=== PATIENT | female | born 1965 ===

== ENCOUNTER 2016-07-09 18:39 | Emergency (ER) | payer OTHER ==
[2016-07-09 18:51] VITALS: BP 134/79; PULSE 67; RESP 16; TEMP 98.9; O2SAT 100
--- NOTE | 2016-07-09 19:20 | ED PDOC ---
HPI: Eye Injury/Pain Time Seen by Provider: 07/09/16 18:56 Chief Complaint (Nursing): Eye Problem Chief Complaint (Provider): right eye pain History Per: Patient History/Exam Limitations: no limitations Onset/Duration Of Symptoms: Days (x 1) Current Symptoms Are (Timing): Still Present Injury To Eye?: No Additional Complaint(s): Lesvia Castaneda is a 51 year old female, with a previous medical history of hypothyroidism and diabetes, who presents to the ED with complaints of right eye pain secondary to having an ointment applied to the eye by her doll eye setter. Pt reports to having her cataracts removed yesterday in [facility]. Pt states to following up with an doll eye setter in [facility] who applied an ointment to the eye to help with the healing. Pt stated shortly after to experiencing eye pain and swelling. Pt states her doll eye setter rinsed her eye out and placed a lens in her eye which has also caused pain. suggested the patient be seen in the ED if pain persists. Pt is unsure of 's name. Pt states to experiencing no pain prior to ointment application. Pt denies any changes in vision. PMD: none provided Past Medical History Reviewed: Historical Data, Nursing Documentation, Vital Signs Vital Signs: Last Vital Signs Temp 98.9 F 07/09/16 18:48 Pulse 67 07/09/16 18:48 Resp 16 07/09/16 18:48 BP 134/79 07/09/16 18:48 Pulse Ox 100 07/09/16 18:48 - Medical History PMH: No Chronic Diseases, Diabetes, Hypothyroidism - Surgical History Surgical History: Appendectomy - Family History Family History: States: Diabetes - Home Medications Home Medications: Ambulatory Orders Medication Instructions Recorded MetFORMIN [glucoPHAGE] 1,000 mg PO QAM #14 tab 02/17/16 Ibuprofen [Motrin] 600 mg PO Q8 PRN #21 tab 07/09/16 oxyCODONE/Acetaminophen [Percocet 1 ea PO Q6 PRN #5 tab 07/09/16 5/325 mg Tab] - Allergies Allergies/Adverse Reactions: Allergies Allergy/AdvReac Type Severity Reaction Status Date / Time No Known Allergies Allergy Verified 07/09/16 18:48 Review of Systems ROS Statement: Except As Marked, All Systems Reviewed And Found Negative Eyes: Positive for: Pain (right eye ), Redness. Negative for: Vision Change Physical Exam - Reviewed Nursing Documentation Reviewed: Yes Vital Signs Reviewed: Yes - Physical Exam Appears: Positive for: Well, Non-toxic, In Acute Distress (moderate painful ) Head Exam: Positive for: ATRAUMATIC, NORMAL INSPECTION, NORMOCEPHALIC Skin: Positive for: Normal Color, Warm, Dry Eye Exam: Positive for: Conjunctival injection (minimal ), Other (lens noted in place. No localized area of fluorescein uptake. Right eye dilated but able to constrict. Pt reports to having an eye exam earlier today.). Negative for: Periorbital swelling, Periorbital tenderness, Scleral icterus Neurologic/Psych: Positive for: Alert, Oriented - ECG O2 Sat by Pulse Oximetry: 100 (RA) Pulse Ox Interpretation: Normal - Progress ED Course And Treament: Pt reports pain improved after the application of the tetracaine eye drops. Visual acuity cannot be assessed secondary to pt's blurry vision. d/w Dr. Grant Advises antibiotic ointment application to eye and patch. Patient and daughter do not want this treatment, stating symptoms were aggravated initially from this. Will f/u with eye md tomorrow. Medical Decision Making Medical Decision Making: Initial Impression: eye pain Initial Plan: * fluorescein eye stain * motrin * reevaluation Scribe Attestation: Documented by Veda Peralta, acting as a scribe for Virgilio Thomas PA-C. Provider Scribe Attestation: All medical record entries made by the Scribe were at my direction and personally dictated by me. I have reviewed the chart and agree that the record accurately reflects my personal performance of the history, physical exam, medical decision making, and the department course for this patient. I have also personally directed, reviewed, and agree with the discharge instructions and disposition. Disposition - Clinical Impression Clinical Impression: Corneal injury - Patient ED Disposition Is Patient to be Admitted: No - Disposition Disposition: Routine/Home Disposition Time: 20:29 Condition: FAIR Prescriptions: Ibuprofen [Motrin] 600 mg PO Q8 PRN #21 tab PRN Reason: Pain, Moderate (4-7) oxyCODONE/Acetaminophen [Percocet 5/325 mg Tab] 1 ea PO Q6 PRN #5 tab PRN Reason: Pain, Severe (8-10) Instructions: Corneal Abrasion (ED) Print Language: LUXEMBOURGER
[2016-07-09] MEDS ORDERED: Fluorescein 1 mg Ophthalmic Strip ONE ×2 (19:33→19:52)
== END 2016-07-09 20:42 | disposition home or self-care (01) ==
LOC: H.ER 18:39
DX: H57.11 Ocular pain, right eye (principal); E11.9 Type 2 diabetes mellitus without complications; E03.9 Hypothyroidism, unspecified; Z79.84 Long term (current) use of oral hypoglycemic drugs

== ENCOUNTER 2018-01-19 14:46 | Emergency (ER) | payer OTHER ==
[2018-01-19 15:19] VITALS: BP 131/80; PULSE 74; RESP 19; TEMP 98.7; O2SAT 99
[2018-01-19 15:20] VITALS: BMI 23.6
[2018-01-19] MEDS ORDERED: Tdap Vaccine 0.5 ml Vial (10-64 yrs) IM ONE ×2 (16:49→17:40)
[2018-01-19] MEDS ORDERED: Bacitracin 500 Units/gm Oint Foilpak UD TOP STA (16:49)
--- NOTE | 2018-01-19 17:01 | ED PDOC ---
Lower Extremity Pain/Injury Time Seen by Provider: 01/19/18 16:23 Chief Complaint (Nursing): Abnormal Skin Integrity Chief Complaint (Provider): Abnormal Skin Integrity History Per: Patient History/Exam Limitations: no limitations Current Symptoms Are (Timing): Still Present Additional Complaint(s): 52 year old female presents to the ED with daughter for evaluation of a small wound on the right leg, which appeared 4 months ago. At the time, the wound began to bleed which stopped spontaneously and started again yesterday for a brief period of time before resolving spontaneously with a bandage. Patient seeking wound evaluation and is concerned because of her past medical history of diabetes. Patient is unsure of last tetanus vaccination. No other complaints, denies trauma or falls. PMD: none Past Medical History Reviewed: Historical Data, Nursing Documentation, Vital Signs Vital Signs: Last Vital Signs Temp 98.7 F 01/19/18 15:18 Pulse 74 01/19/18 15:18 Resp 19 01/19/18 15:18 BP 131/80 01/19/18 15:18 Pulse Ox 99 01/19/18 15:18 - Medical History PMH: Diabetes, Hypothyroidism - Surgical History Surgical History: Appendectomy - Family History Family History: States: Diabetes - Home Medications Home Medications: Ambulatory Orders Medication Instructions Recorded RX: MetFORMIN [glucoPHAGE] 1,000 mg PO QAM #14 tab 02/17/16 Ibuprofen [Motrin] 600 mg PO Q8 PRN #21 tab 07/09/16 oxyCODONE/Acetaminophen [Percocet 1 ea PO Q6 PRN #5 tab 07/09/16 5/325 mg Tab] - Allergies Allergies/Adverse Reactions: Allergies Allergy/AdvReac Type Severity Reaction Status Date / Time No Known Allergies Allergy Verified 07/09/16 18:48 Review of Systems ROS Statement: Except As Marked, All Systems Reviewed And Found Negative Skin: Positive for: Other (Wound check) Physical Exam - Reviewed Nursing Documentation Reviewed: Yes Vital Signs Reviewed: Yes - Physical Exam Comments: GENERAL APPEARANCE: Patient is awake, alert, oriented x 3, in no acute distress. Resting comfortably SKIN: Warm, dry; (-) cyanosis. NECK: Supple, FROM RIGHT LEG: (+)0.5cm by 0.5cm venous stasis ulcer to the medial aspect of the distal right lower extremity just proximal to the medial malleolus, (+) surrounding venous stasis dermatitis, (-) surrounding erythema, (-) warmth (-) evidence of cellulitis. Sensation and capillary refill intact with full ROM throughout. (-) calf tenderness (-) palpable cord. CHEST AND RESPIRATORY: (-)wheezing (-) rales, (-) rhonchi, (-) rub; breath sounds equal bilaterally. Respirations even and nonlabored. HEART AND CARDIOVASCULAR: (-) irregularity NEUROLOGIC: (+) distal sensation. Gait: steady. Speech: clear. (-) facial asymmetry. Mental status as above. - ECG O2 Sat by Pulse Oximetry: 99 (RA) Pulse Ox Interpretation: Normal Medical Decision Making Medical Decision Making: Initial Impression: venous stasis ulcer Initial Plan: --Tetanus 0.5mL IM --Bacitracin 1ea TOP --Patient educated on wound care. 1819 On re-evaluation, patient reports improvement of symptoms. On exam, patient remains AAOx3, in no acute distress. Lungs clear to auscultation, cardiac RRR, repeat neuro exam shows no focal findings. Vitals stable. Lab/Diagnostic results d/w the patient in great detail. Diagnosis of venous stasis ulcer d/w the patient. Based on history, exam and diagnostic results, plan will be for outpatient follow up with clinic. Patient instructed to follow-up with pmd / referral provided / the clinic in 1- 2 days without fail. Advised to take medication as prescribed. Return to the emergency room at any time for any new or worsening symptoms. Patient states she fully agrees with and understands discharge instructions. States that she agrees with the plan and disposition. Verbalized and repeated discharge instructions and plan. I have given the patient opportunity to ask any additional questions. Scribe Attestation: Documented by Darin Pappas acting as a scribe for Mily MCLEAN Provider Scribe Attestation: All medical record entries made by the Scribe were at my direction and personally dictated by me. I have reviewed the chart and agree that the record accurately reflects my personal performance of the history, physical exam, medical decision making, and the department course for this patient. I have also personally directed, reviewed, and agree with the discharge instructions and disposition. Disposition - Clinical Impression Clinical Impression: Venous stasis dermatitis, Venous stasis ulcer of ankle - Patient ED Disposition Is Patient to be Admitted: No Counseled Patient/Family Regarding: Studies Performed, Diagnosis, Need For Followup - Disposition Referrals: [facility] [Outside] Disposition: Routine/Home Disposition Time: 18:25 Condition: STABLE Additional Instructions: La atencin mdica de emergencia que recibi hoy se dirigi a alyssa sntomas agudos. Si le recetaron algn medicamento, llnelo y tmelo segn las indicaciones. Los sntomas pueden tardar varios glez en resolverse. Regrese al Departamento de Emergencias si alyssa sntomas empeoran, no mejoran o si tiene otros problemas. Comunquese con white mdico dentro de 2 glez para magnus nueva evaluacin y bobo un seguimiento o llame a tiffanie de los mdicos / clnicas a los que kelsey sido referido y que figuran en el formulario de Informacin de visita al paciente que se incluye en white paquete de abdirahman. Lleve con usted a white consulta de seguimiento toda la documentacin que recibi del abdirahman junto con los medicamentos que est tomando. Nuestro tratamiento no puede reemplazar la atencin mdica continua por parte de un proveedor de atencin primaria (PCP) fuera del departamento de emergencias. Instructions: Treatment of Varicose Veins of the Leg, Wound Care Forms: [facility] (Nigerian) Print Language: CROATIAN - POA Present On Arrival: None
== END 2018-01-19 18:25 | disposition home or self-care (01) ==
LOC: H.ER 14:46
DX: I87.2 Venous insufficiency (chronic) (peripheral) (principal); I87.8 Other specified disorders of veins; E11.9 Type 2 diabetes mellitus without complications; Z79.84 Long term (current) use of oral hypoglycemic drugs; L97.319 Non-pressure chronic ulcer of right ankle with unspecified severity